=== PATIENT | male | born 1950 | race Caucasian/White ===

== ENCOUNTER 2022-08-05 13:12 | Emergency (ER) | payer OTHER ==
[~2022-08-05] VITALS: Ht 172.7 cm; Wt 72.6 kg
--- NOTE | 2022-08-05 14:16 | NUR ---
Pt taken to CT
--- NOTE | 2022-08-05 14:37 | NUR ---
Pt returned from CT
[2022-08-05 15:14] LABS: ALBUMIN 3.5 g/dL (3.4-5.0); ANION GAP 8.3 (8-16); ASPARTATE AMINOTRANSFERASE 17 U/L (15-37); CHLORIDE 104 mmol/L (98-107); CREATININE 0.9 mg/dL (0.6-1.3); GLUCOSE 88 mg/dL (74-106); LIPASE 135 U/L (73-393); POTASSIUM 4.3 mmol/L (3.5-5.1); SODIUM SERUM 139 mmol/L (136-145); TOTAL BILIRUBIN 0.2 mg/dL (0.0-1.0); UREA NITROGEN, BLOOD 17 mg/dL (7-18)
[2022-08-05 15:18] LABS: BASOPHILS % (AUTO) 0.2 % (0.0-2.0); EOSINOPHILS # (AUTO) 0.1 K/uL (0-0.4); EOSINOPHILS % (AUTO) 0.5 % (0.0-4.0); HEMATOCRIT 39.5 % (36-52); HEMOGLOBIN 12.7 g/dL (12.0-18.0); LYMPHOCYTES # (AUTO) 2.2 K/uL (2.0-11.5); LYMPHOCYTES % (AUTO) 15.5 % (20.5-51.1); MEAN CORPUSCULAR HEMOGLOBIN 28 pg (27-31); MEAN CORPUSCULAR HGB CONC 32 g/dL (33-37); MEAN CORPUSCULAR VOLUME 87.6 fL (80-94); MONOCYTES # (AUTO) 1.1 K/uL (0.8-1.0); NEUTROPHILS # (AUTO) 10.7 K/uL (1.8-7.7); NEUTROPHILS % (AUTO) 75.8 % (42.2-75.2); PLATELET COUNT (AUTO) 169 K/uL (140-450); RED BLOOD CELL COUNT(AUTO) 4.51 MIL/uL (4.20-6.10); RED CELL DISTRIBUTION WIDTH 13.9 % (11.6-13.7); WHITE BLOOD COUNT (AUTO) 14.1 K/uL (4.8-10.8)
--- NOTE | 2022-08-05 18:01 | NUR ---
Performed straight cath at pt's request. 250ml output
--- NOTE | 2022-08-05 20:35 | NUR ---
[facility] HERE.
[2022-08-05 20:45] VITALS: BP 141/80
--- NOTE | 2022-08-05 20:45 | NUR ---
Patient discharged with v/s stable. Written and verbal after care instructions given and explained. Patient verbalized understanding. [facility] with to [facility]. All questions addressed prior to discharge. Advised to follow up with PMD.
== END 2022-08-05 20:45 | disposition home or self-care (01) ==
LOC: MED 13:12
DX: R10.9 Unspecified abdominal pain (principal); K40.90 Unilateral inguinal hernia, without obstruction or gangrene, not specified as recurrent
CPT/HCPCS: 36415; 80053; 83690; 85025; 99284

== ENCOUNTER 2023-04-18 14:35 | Inpatient (IN) | payer OTHER ==
[~2023-04-18] VITALS: Ht 162.6 cm; Wt 72.1 kg
[2023-04-18] MEDS ORDERED: NACL 0.9% 1,000 ML IV SCH (14:50)
[2023-04-18 14:54] VITALS: BP 173/86; PULSE 89; RESP 18; TEMP 98.7; O2SAT 98
[2023-04-18 15:43] LABS: BASOPHILS % (AUTO) 0.2 % (0.0-2.0); EOSINOPHILS # (AUTO) 0.1 K/uL (0-0.4); EOSINOPHILS % (AUTO) 0.9 % (0.0-4.0); HEMATOCRIT 38.1 % (36-52); HEMOGLOBIN 12.4 g/dL (12.0-18.0); LYMPHOCYTES # (AUTO) 1.4 K/uL (2.0-11.5); LYMPHOCYTES % (AUTO) 11.8 % (20.5-51.1); MEAN CORPUSCULAR HEMOGLOBIN 28 pg (27-31); MEAN CORPUSCULAR HGB CONC 32 g/dL (33-37); MEAN CORPUSCULAR VOLUME 85.9 fL (80-94); MONOCYTES # (AUTO) 1.2 K/uL (0.8-1.0); MONOCYTES % (AUTO) 10.1 % (1.7-9.3); PLATELET COUNT (AUTO) 203 K/uL (140-450); RED BLOOD CELL COUNT(AUTO) 4.44 MIL/uL (4.20-6.10); RED CELL DISTRIBUTION WIDTH 13.6 % (11.6-13.7); WHITE BLOOD COUNT (AUTO) 11.7 K/uL (4.8-10.8)
[2023-04-18 15:57] LABS: ANION GAP 10.4 (8-16); CALCIUM 8.8 mg/dL (8.5-10.1); CARBON DIOXIDE 29.9 mmol/L (21-32); CHLORIDE 100 mmol/L (98-107); CREATININE 0.8 mg/dL (0.6-1.3); GLUCOSE 136 mg/dL (74-106); POTASSIUM 4.3 mmol/L (3.5-5.1); SODIUM SERUM 136 mmol/L (136-145); UREA NITROGEN, BLOOD 23 mg/dL (7-18)
[2023-04-18 16:09] LABS: INR 0.9 (0.8-1.2); PARTIAL THROMBOPLASTIN TIME 29.1 secs (22-35.6); PROTHROMBIN TIME 9.5 secs (10.8-13.4)
[2023-04-18 16:10] LABS: LACTIC ACID 1.4 mmol/L (0.4-2.0)
[2023-04-18 16:23] LABS: ALANINE AMINOTRANSFERASE 21 U/L (12-78); ALBUMIN 2.7 g/dL (3.4-5.0); ALKALINE PHOSPHATASE 154 U/L (50-136); ASPARTATE AMINOTRANSFERASE 21 U/L (15-37); BILIRUBIN,DIRECT 0.1 mg/dL (0.0-0.3); CREATINE KINASE, TOTAL 740 U/L (39-308); LIPASE 30 U/L (16-77); TOTAL BILIRUBIN 0.4 mg/dL (0.0-1.0); TOTAL PROTEIN, SERUM 8.1 g/dL (6.4-8.2)
[2023-04-18 18:34] LABS: APPEARANCE,URINE CLEAR (CLEAR); BILIRUBIN,URINE NEGATIVE (NEGATIVE); BLOOD, URINE TRACE-I (NEGATIVE); COLOR,URINE YELLOW (YELLOW); LEUKOCYTE ESTERASE ,URINE NEGATIVE (NEGATIVE); NITRITE, URINE POSITIVE (NEGATIVE); PH,URINE 6.5 (5.0-9.0); PROTEIN,URINE TRACE (NEGATIVE); UGLUCOSE NEGATIVE (NEGATIVE)
[2023-04-18] MEDS ORDERED: PIPERACILLIN/TAZOBACTAM 3.375 GM in DEXTROSE 5% 50 ML IV ONE (18:35)
[2023-04-18 18:36] LABS: RBC,URINE 0-5 /HPF (0-5); WBC,URINE 0 /HPF (0-5)
[2023-04-18 18:37] LABS: BACTERIA,URINE 1+ /HPF (None Seen); MUCUS,URINE None Seen /LPF (None Seen); SQUAMOUS EPITHELIAL CELL,UR 0-3 (FEW) /LPF (0-3 (FEW))
[2023-04-18] MEDS ORDERED: PIPERACILLIN/TAZOBACTAM 3.375 GM VIAL IV ONE (19:10)
[2023-04-18] MEDS ORDERED: DEXT 5% /NACL 0.9% 1,000 ML IV ONE (19:20)
[2023-04-18] MEDS ORDERED: LISI5TAB18 PO (19:41)
[2023-04-18] MEDS ORDERED: CLON0.5T PO (19:41)
[2023-04-18] MEDS ORDERED: ATOR10TA PO (19:41)
[2023-04-18] MEDS ORDERED: METF-346 PO (19:41)
[2023-04-18] MEDS ORDERED: BACL10TA4 PO (19:41)
[2023-04-18] MEDS ORDERED: [UNRECOGNIZED DRUG - CODE] PO (19:41)
[2023-04-18] MEDS ORDERED: VIBE75TA PO (19:41)
[2023-04-18] MEDS ORDERED: FAMO-90 PO (19:41)
[2023-04-19 06:41] LABS: BASOPHILS % (AUTO) 0.1 % (0.0-2.0); EOSINOPHILS # (AUTO) 0.1 K/uL (0-0.4); EOSINOPHILS % (AUTO) 0.9 % (0.0-4.0); HEMATOCRIT 35.9 % (36-52); HEMOGLOBIN 11.5 g/dL (12.0-18.0); LYMPHOCYTES # (AUTO) 1.4 K/uL (2.0-11.5); LYMPHOCYTES % (AUTO) 12.7 % (20.5-51.1); MEAN CORPUSCULAR HEMOGLOBIN 28 pg (27-31); MEAN CORPUSCULAR HGB CONC 32 g/dL (33-37); MEAN CORPUSCULAR VOLUME 85.6 fL (80-94); MONOCYTES # (AUTO) 1.3 K/uL (0.8-1.0); MONOCYTES % (AUTO) 11.4 % (1.7-9.3); NEUTROPHILS # (AUTO) 8.5 K/uL (1.8-7.7); NEUTROPHILS % (AUTO) 74.9 % (42.2-75.2); PLATELET COUNT (AUTO) 189 K/uL (140-450); RED BLOOD CELL COUNT(AUTO) 4.19 MIL/uL (4.20-6.10); RED CELL DISTRIBUTION WIDTH 13.5 % (11.6-13.7); WHITE BLOOD COUNT (AUTO) 11.3 K/uL (4.8-10.8)
[2023-04-19 06:53] LABS: ANION GAP 12.2 (8-16); CALCIUM 8.5 mg/dL (8.5-10.1); CARBON DIOXIDE 27.7 mmol/L (21-32); CHLORIDE 101 mmol/L (98-107); CREATININE 0.8 mg/dL (0.6-1.3); GLUCOSE 166 mg/dL (74-106); POTASSIUM 3.9 mmol/L (3.5-5.1); SODIUM SERUM 137 mmol/L (136-145); UREA NITROGEN, BLOOD 12 mg/dL (7-18)
[2023-04-19 08:05] VITALS: PULSE 111; RESP 17
[2023-04-19] MEDS ORDERED: HYDROcodone/APAP 7.5/325 MG 1 TAB PO PRN (10:00)
[2023-04-19] MEDS ORDERED: MAG SULF 2000 MG/WATER PREMIX 50 ML IV PRN (10:00)
[2023-04-19] MEDS ORDERED: ONDANSETRON 4 MG/2 ML VIAL IVP PRN (10:00)
[2023-04-19] MEDS: NACL 0.9% 1,000 ML IV SCH ×2 (10:00→21:16)
[2023-04-19] MEDS ORDERED: POTASSIUM CHLORIDE 10 MEQ TABER PO PRN (10:00)
[2023-04-19] MEDS ORDERED: ACETAMINOPHEN 325 MG TAB PO PRN (10:00)
[2023-04-19 10:54] LABS: BASOPHILS % (AUTO) 0.3 % (0.0-2.0); EOSINOPHILS # (AUTO) 0.1 K/uL (0-0.4); EOSINOPHILS % (AUTO) 1.3 % (0.0-4.0); HEMATOCRIT 34.3 % (36-52); HEMOGLOBIN 11.3 g/dL (12.0-18.0); LYMPHOCYTES # (AUTO) 1.4 K/uL (2.0-11.5); LYMPHOCYTES % (AUTO) 13.4 % (20.5-51.1); MEAN CORPUSCULAR HEMOGLOBIN 28 pg (27-31); MEAN CORPUSCULAR HGB CONC 33 g/dL (33-37); MEAN CORPUSCULAR VOLUME 84.5 fL (80-94); MONOCYTES # (AUTO) 1.2 K/uL (0.8-1.0); MONOCYTES % (AUTO) 11.1 % (1.7-9.3); NEUTROPHILS # (AUTO) 7.9 K/uL (1.8-7.7); NEUTROPHILS % (AUTO) 73.9 % (42.2-75.2); PLATELET COUNT (AUTO) 195 K/uL (140-450); RED BLOOD CELL COUNT(AUTO) 4.05 MIL/uL (4.20-6.10); RED CELL DISTRIBUTION WIDTH 13.5 % (11.6-13.7); WHITE BLOOD COUNT (AUTO) 10.7 K/uL (4.8-10.8)
[2023-04-19 11:04] LABS: ANION GAP 10.2 (8-16); CALCIUM 8.5 mg/dL (8.5-10.1); CARBON DIOXIDE 30.6 mmol/L (21-32); CHLORIDE 101 mmol/L (98-107); CREATININE 0.9 mg/dL (0.6-1.3); GLUCOSE 156 mg/dL (74-106); POTASSIUM 3.8 mmol/L (3.5-5.1); SODIUM SERUM 138 mmol/L (136-145); UREA NITROGEN, BLOOD 12 mg/dL (7-18)
[2023-04-19 11:14] LABS: INR 0.96 (0.8-1.2); PARTIAL THROMBOPLASTIN TIME 28.8 secs (22-35.6); PROTHROMBIN TIME 10.1 secs (10.8-13.4)
[2023-04-19] MEDS ORDERED: THERAHONEY GEL 42.5 GM TP PRN (11:50)
[2023-04-19 12:00] VITALS: BP 124/76; PULSE 90; RESP 17; TEMP 98.4; O2SAT 97
[2023-04-19] MEDS: BACLOFEN 10 MG TAB PO SCH ×2 (12:00→18:01)
[2023-04-19] MEDS: PIPERACILLIN/TAZOBACTAM 3.375 GM in DEXTROSE 5% 50 ML IV SCH ×2 (12:12→20:53)
[2023-04-19 12:55] LABS: AMYLASE 39 U/L (25-115); CHOL/HDL RATIO 2.5 (1-4.5); CHOLESTEROL 106 mg/dL (<200); FREE T4 (FREE THYROXINE) 1.09 ng/dL (0.76-1.46); HDL CHOLESTEROL 43 mg/dL (40-60); LDL (CALC) 52 mg/dL (60-100); LIPASE 29 U/L (16-77); THYROID STIMULATING HORMONE 0.56 uIU/mL (0.34-3.74); TRIGLYCERIDES 58 mg/dL (30-150)
[2023-04-19] MEDS: THERAHONEY GEL 42.5 GM TP SCH (13:10)
[2023-04-19 16:00] VITALS: BP 143/76; PULSE 84; PULSE 85; RESP 17; TEMP 98.5; O2SAT 98
[2023-04-19] MEDS ORDERED: INSULIN LISPRO SLIDING SCALE 100 UNITS/ML VIAL SUBQ PRN ×2 (17:10)
[2023-04-19] MEDS ORDERED: DEXTROSE 50% 50 ML SYR IVP PRN ×2 (17:10)
[2023-04-19] MEDS: metFORMIN 500 MG TAB PO SCH (18:02)
[2023-04-19 20:00] VITALS: BP 146/85; PULSE 113; PULSE 93; RESP 17; TEMP 98.4; O2SAT 96
[2023-04-19] MEDS: DOCUSATE SODIUM 100 MG GELCAP PO SCH (20:53)
[2023-04-19] MEDS: ATORVASTATIN 20 MG TAB PO SCH (20:54)
[2023-04-19] MEDS: methocarbamoL 500 MG TAB PO SCH (20:54)
[2023-04-19] MEDS: BLOOD GLUCOSE MONITORING 1 DEV DEV FS SCH (21:09)
[2023-04-20] VITALS: BP 142/87; PULSE 93; PULSE 96; RESP 17; TEMP 98.8; O2SAT 98
[2023-04-20] MEDS: BACLOFEN 10 MG TAB PO SCH ×5 (00:01→23:54)
[2023-04-20 04:00] VITALS: BP 147/80; PULSE 82; PULSE 93; RESP 17; TEMP 98.6; O2SAT 97
[2023-04-20] MEDS: PIPERACILLIN/TAZOBACTAM 3.375 GM in DEXTROSE 5% 50 ML IV SCH ×3 (04:53→22:15)
[2023-04-20 06:22] LABS: BASOPHILS % (AUTO) 0.3 % (0.0-2.0); EOSINOPHILS # (AUTO) 0.1 K/uL (0-0.4); EOSINOPHILS % (AUTO) 1.1 % (0.0-4.0); HEMATOCRIT 33.4 % (36-52); LYMPHOCYTES # (AUTO) 1.7 K/uL (2.0-11.5); LYMPHOCYTES % (AUTO) 15.4 % (20.5-51.1); MEAN CORPUSCULAR HEMOGLOBIN 28 pg (27-31); MEAN CORPUSCULAR HGB CONC 33 g/dL (33-37); MEAN CORPUSCULAR VOLUME 84.9 fL (80-94); MONOCYTES % (AUTO) 9.3 % (1.7-9.3); NEUTROPHILS # (AUTO) 8.1 K/uL (1.8-7.7); NEUTROPHILS % (AUTO) 73.9 % (42.2-75.2); PLATELET COUNT (AUTO) 193 K/uL (140-450); RED BLOOD CELL COUNT(AUTO) 3.93 MIL/uL (4.20-6.10); RED CELL DISTRIBUTION WIDTH 13.5 % (11.6-13.7); WHITE BLOOD COUNT (AUTO) 10.9 K/uL (4.8-10.8)
[2023-04-20] MEDS: BLOOD GLUCOSE MONITORING 1 DEV DEV FS SCH ×4 (07:30→22:13)
[2023-04-20 07:33] LABS: MAGNESIUM 1.8 mg/dL (1.8-2.4); PHOSPHORUS 3.4 mg/dL (2.5-4.9)
[2023-04-20 08:00] VITALS: BP 123/75; PULSE 89; RESP 20; TEMP 96.6; O2SAT 97
[2023-04-20 08:30] LABS: ANION GAP 14.2 (8-16); CALCIUM 8.2 mg/dL (8.5-10.1); CARBON DIOXIDE 24.5 mmol/L (21-32); CHLORIDE 101 mmol/L (98-107); CREATININE 0.7 mg/dL (0.6-1.3); GLUCOSE 126 mg/dL (74-106); POTASSIUM 3.7 mmol/L (3.5-5.1); SODIUM SERUM 136 mmol/L (136-145); UREA NITROGEN, BLOOD 13 mg/dL (7-18)
[2023-04-20] MEDS ORDERED: VIBEGRON 75 MG PO SCH (09:00)
[2023-04-20] MEDS: PANTOPRAZOLE 40 MG INJ VIAL IVP SCH (09:30)
[2023-04-20] MEDS: metFORMIN 500 MG TAB PO SCH ×2 (09:31→17:20)
[2023-04-20] MEDS: lisinopriL 5 MG TAB PO SCH (09:31)
[2023-04-20] MEDS: FAMOTIDINE 20 MG TAB PO SCH (09:31)
[2023-04-20] MEDS: DOCUSATE SODIUM 100 MG GELCAP PO SCH ×2 (09:31→21:51)
[2023-04-20] MEDS: clonazePAM 0.5 MG TAB PO SCH (09:34)
[2023-04-20 12:00] VITALS: BP 126/78; PULSE 75; RESP 20; TEMP 98; O2SAT 97
[2023-04-20] MEDS: THERAHONEY GEL 42.5 GM TP SCH (13:00)
[2023-04-20] MEDS: NACL 0.9% 1,000 ML IV SCH (15:59)
[2023-04-20 16:00] VITALS: BP 135/81; PULSE 112; RESP 20; TEMP 98.4; O2SAT 98
[2023-04-20 20:00] VITALS: BP 145/82; PULSE 82; PULSE 92; RESP 20; TEMP 98; O2SAT 96; O2SAT 97
[2023-04-20] MEDS: methocarbamoL 500 MG TAB PO SCH (21:52)
[2023-04-20] MEDS: ATORVASTATIN 20 MG TAB PO SCH (21:52)
[2023-04-20] MEDS ORDERED: CRUSHER, PILL MC ONE (22:06)
[2023-04-21] VITALS (8 sets, daily range): BP systolic 133–158; BP diastolic 72–92; PULSE 76–118; RESP 18–20; TEMP 97.3–98.5; O2SAT 96–98
[2023-04-21 05:51] LABS: ANION GAP 11.7 (8-16); CARBON DIOXIDE 26.6 mmol/L (21-32); CHLORIDE 101 mmol/L (98-107); CREATININE 0.8 mg/dL (0.6-1.3); GLUCOSE 129 mg/dL (74-106); POTASSIUM 3.3 mmol/L (3.5-5.1); SODIUM SERUM 136 mmol/L (136-145); UREA NITROGEN, BLOOD 10 mg/dL (7-18)
[2023-04-21 05:59] LABS: PHOSPHORUS 3.4 mg/dL (2.5-4.9)
[2023-04-21] MEDS: BACLOFEN 10 MG TAB PO SCH ×3 (06:00→17:29)
[2023-04-21] MEDS: PIPERACILLIN/TAZOBACTAM 3.375 GM in DEXTROSE 5% 50 ML IV SCH ×3 (06:06→23:00)
[2023-04-21] MEDS: NACL 0.9% 1,000 ML IV SCH (06:07)
[2023-04-21] MEDS: BLOOD GLUCOSE MONITORING 1 DEV DEV FS SCH ×4 (06:13→23:00)
[2023-04-21] MEDS ORDERED: METOCLOPRAMIDE 10 MG/2 ML INJ VIAL IVP ONE (07:10)
[2023-04-21] MEDS ORDERED: SEVOFLURANE 250 ML BTL INH ONE (07:10)
[2023-04-21] MEDS ORDERED: ePHEDrine 50 MG/ML VIAL IV ONE (07:10)
[2023-04-21 07:49] LABS: BASOPHILS % (AUTO) 0.3 % (0.0-2.0); EOSINOPHILS # (AUTO) 0.2 K/uL (0-0.4); EOSINOPHILS % (AUTO) 1.7 % (0.0-4.0); HEMATOCRIT 35.3 % (36-52); HEMOGLOBIN 11.3 g/dL (12.0-18.0); LYMPHOCYTES # (AUTO) 2.1 K/uL (2.0-11.5); MEAN CORPUSCULAR HEMOGLOBIN 28 pg (27-31); MEAN CORPUSCULAR HGB CONC 32 g/dL (33-37); MEAN CORPUSCULAR VOLUME 86.5 fL (80-94); MONOCYTES # (AUTO) 1.1 K/uL (0.8-1.0); MONOCYTES % (AUTO) 9.5 % (1.7-9.3); NEUTROPHILS # (AUTO) 8.3 K/uL (1.8-7.7); NEUTROPHILS % (AUTO) 70.5 % (42.2-75.2); PLATELET COUNT (AUTO) 227 K/uL (140-450); RED BLOOD CELL COUNT(AUTO) 4.08 MIL/uL (4.20-6.10); RED CELL DISTRIBUTION WIDTH 13.5 % (11.6-13.7); WHITE BLOOD COUNT (AUTO) 11.8 K/uL (4.8-10.8)
[2023-04-21] MEDS: metFORMIN 500 MG TAB PO SCH ×2 (08:00→17:29)
[2023-04-21] MEDS: FAMOTIDINE 20 MG TAB PO SCH (09:00)
[2023-04-21] MEDS: PANTOPRAZOLE 40 MG INJ VIAL IVP SCH (09:00)
[2023-04-21] MEDS: DOCUSATE SODIUM 100 MG GELCAP PO SCH ×2 (09:00→21:00)
[2023-04-21] MEDS: clonazePAM 0.5 MG TAB PO SCH (09:00)
[2023-04-21] MEDS: lisinopriL 5 MG TAB PO SCH (09:00)
[2023-04-21] MEDS ORDERED: LIDOCAINE/EPI MPF 1%1:200000 30 ML VIAL INJ ONE (09:08)
[2023-04-21] MEDS ORDERED: BUPIVACAINE-MPF 0.25% 30 ML VIAL INJ ONE (09:09)
[2023-04-21] MEDS ORDERED: ceFAZolin 2,000 MG VIAL ONE (09:09)
[2023-04-21] MEDS ORDERED: MIDAZOLAM 2 MG/2 ML VIAL ONE (09:18)
[2023-04-21] MEDS ORDERED: PROPOFOL 200 MG/20 ML VIAL IV ONE (09:18)
[2023-04-21] MEDS ORDERED: ROCURONIUM 50 MG/5 ML VIAL IV ONE (09:18)
[2023-04-21] MEDS ORDERED: HYDROmorphone PFS 2 MG/ML SYR ONE (09:18)
[2023-04-21] MEDS ORDERED: SUGAMMADEX SODIUM 200 MG/2 ML VIAL IV ONE (09:32)
[2023-04-21] MEDS: LACTATED RINGERS 1,000 ML IV SCH ×2 (10:40→18:35)
[2023-04-21] MEDS ORDERED: ONDANSETRON 4 MG/2 ML VIAL IVP PRN (10:40)
[2023-04-21] MEDS ORDERED: HYDROmorphone 1 MG/ML AMP IVP PRN (10:40)
[2023-04-21] MEDS: THERAHONEY GEL 42.5 GM TP SCH (18:15)
[2023-04-21] MEDS: methocarbamoL 500 MG TAB PO SCH (23:00)
[2023-04-21] MEDS: ATORVASTATIN 20 MG TAB PO SCH (23:01)
[2023-04-22] VITALS (7 sets, daily range): BP systolic 128–152; BP diastolic 66–85; PULSE 78–110; RESP 18; TEMP 98.1–98.8; O2SAT 94–98
[2023-04-22] MEDS: LACTATED RINGERS 1,000 ML IV SCH (03:20)
[2023-04-22] MEDS: NACL 0.9% 1,000 ML IV SCH (06:15)
[2023-04-22] MEDS: BACLOFEN 10 MG TAB PO SCH ×4 (06:16→17:35)
[2023-04-22] MEDS: PIPERACILLIN/TAZOBACTAM 3.375 GM in DEXTROSE 5% 50 ML IV SCH ×3 (06:16→21:40)
[2023-04-22 06:28] LABS: BASOPHILS % (AUTO) 0.2 % (0.0-2.0); EOSINOPHILS # (AUTO) 0.1 K/uL (0-0.4); EOSINOPHILS % (AUTO) 0.6 % (0.0-4.0); HEMATOCRIT 32.9 % (36-52); HEMOGLOBIN 10.9 g/dL (12.0-18.0); LYMPHOCYTES # (AUTO) 1.6 K/uL (2.0-11.5); LYMPHOCYTES % (AUTO) 14.4 % (20.5-51.1); MEAN CORPUSCULAR HEMOGLOBIN 28 pg (27-31); MEAN CORPUSCULAR HGB CONC 33 g/dL (33-37); MEAN CORPUSCULAR VOLUME 84.4 fL (80-94); MONOCYTES # (AUTO) 1.2 K/uL (0.8-1.0); MONOCYTES % (AUTO) 10.9 % (1.7-9.3); NEUTROPHILS # (AUTO) 8.1 K/uL (1.8-7.7); NEUTROPHILS % (AUTO) 73.9 % (42.2-75.2); PLATELET COUNT (AUTO) 245 K/uL (140-450); RED CELL DISTRIBUTION WIDTH 13.6 % (11.6-13.7)
[2023-04-22 06:36] LABS: ANION GAP 12.7 (8-16); CALCIUM 7.6 mg/dL (8.5-10.1); CHLORIDE 99 mmol/L (98-107); CREATININE 0.8 mg/dL (0.6-1.3); GLUCOSE 142 mg/dL (74-106); POTASSIUM 3.7 mmol/L (3.5-5.1); SODIUM SERUM 133 mmol/L (136-145); UREA NITROGEN, BLOOD 9 mg/dL (7-18)
[2023-04-22] MEDS: BLOOD GLUCOSE MONITORING 1 DEV DEV FS SCH ×4 (06:47→21:57)
[2023-04-22 06:48] LABS: MAGNESIUM 1.8 mg/dL (1.8-2.4); PHOSPHORUS 3.6 mg/dL (2.5-4.9)
[2023-04-22] MEDS: DOCUSATE SODIUM 100 MG GELCAP PO SCH ×2 (08:26→21:38)
[2023-04-22] MEDS: FAMOTIDINE 20 MG TAB PO SCH (08:26)
[2023-04-22] MEDS: lisinopriL 5 MG TAB PO SCH (08:27)
[2023-04-22] MEDS: metFORMIN 500 MG TAB PO SCH ×2 (08:32→17:36)
[2023-04-22] MEDS: clonazePAM 0.5 MG TAB PO SCH (09:08)
[2023-04-22] MEDS: PANTOPRAZOLE 40 MG INJ VIAL IVP SCH (10:18)
[2023-04-22] MEDS: THERAHONEY GEL 42.5 GM TP SCH (13:00)
[2023-04-22] MEDS ORDERED: Vancomycin Per Pharmacy MC (18:49)
[2023-04-22] MEDS: methocarbamoL 500 MG TAB PO SCH (21:38)
[2023-04-22] MEDS: ATORVASTATIN 20 MG TAB PO SCH (21:39)
[2023-04-22] MEDS ORDERED: VANCOMYCIN 1,000 MG VIAL ONE (21:59)
[2023-04-22] MEDS: VANCOMYCIN 1,000 MG in DEXTROSE 5% 250 ML IV SCH (22:24)
[2023-04-23] VITALS (7 sets, daily range): BP systolic 124–154; BP diastolic 75–80; PULSE 83–100; RESP 18; TEMP 97.8–98.9; O2SAT 96–99
[2023-04-23] MEDS: BACLOFEN 10 MG TAB PO SCH ×4 (00:05→17:10)
[2023-04-23] MEDS: NACL 0.9% 1,000 ML IV SCH (03:59)
[2023-04-23] MEDS: PIPERACILLIN/TAZOBACTAM 3.375 GM in DEXTROSE 5% 50 ML IV SCH ×2 (05:51→05:54)
[2023-04-23 06:14] LABS: ANION GAP 8.7 (8-16); CALCIUM 8.3 mg/dL (8.5-10.1); CARBON DIOXIDE 28.5 mmol/L (21-32); CHLORIDE 100 mmol/L (98-107); CREATININE 0.8 mg/dL (0.6-1.3); GLUCOSE 162 mg/dL (74-106); POTASSIUM 3.2 mmol/L (3.5-5.1); SODIUM SERUM 134 mmol/L (136-145); UREA NITROGEN, BLOOD 6 mg/dL (7-18)
[2023-04-23 06:18] LABS: PHOSPHORUS 2.5 mg/dL (2.5-4.9)
[2023-04-23] MEDS: BLOOD GLUCOSE MONITORING 1 DEV DEV FS SCH ×3 (06:35→16:48)
[2023-04-23 06:46] LABS: BASOPHILS % (AUTO) 0.2 % (0.0-2.0); EOSINOPHILS # (AUTO) 0.1 K/uL (0-0.4); HEMOGLOBIN 9.9 g/dL (12.0-18.0); LYMPHOCYTES # (AUTO) 1.6 K/uL (2.0-11.5); LYMPHOCYTES % (AUTO) 12.9 % (20.5-51.1); MEAN CORPUSCULAR HEMOGLOBIN 28 pg (27-31); MEAN CORPUSCULAR HGB CONC 33 g/dL (33-37); MONOCYTES # (AUTO) 1.2 K/uL (0.8-1.0); NEUTROPHILS # (AUTO) 9.1 K/uL (1.8-7.7); NEUTROPHILS % (AUTO) 75.9 % (42.2-75.2); PLATELET COUNT (AUTO) 230 K/uL (140-450); RED BLOOD CELL COUNT(AUTO) 3.53 MIL/uL (4.20-6.10); RED CELL DISTRIBUTION WIDTH 13.4 % (11.6-13.7)
[2023-04-23] MEDS ORDERED: VANCOMYCIN PER PHARMACY MC PRN (08:06)
[2023-04-23] MEDS: lisinopriL 5 MG TAB PO SCH (08:59)
[2023-04-23] MEDS: metFORMIN 500 MG TAB PO SCH ×2 (09:00→17:10)
[2023-04-23] MEDS: DOCUSATE SODIUM 100 MG GELCAP PO SCH (09:00)
[2023-04-23] MEDS: FAMOTIDINE 20 MG TAB PO SCH (09:00)
[2023-04-23] MEDS: clonazePAM 0.5 MG TAB PO SCH (09:03)
[2023-04-23] MEDS: VANCOMYCIN 1,000 MG in DEXTROSE 5% 250 ML IV SCH (09:25)
[2023-04-23] MEDS: PANTOPRAZOLE 40 MG INJ VIAL IVP SCH (09:25)
[2023-04-23] MEDS ORDERED: SIMETHICONE 80 MG TAB.CHEW PO PRN (09:30)
[2023-04-23] MEDS: THERAHONEY GEL 42.5 GM TP SCH (13:18)
== END 2023-04-23 18:11 | DRG 853 ==
LOC: MED 14:35 → MTU 19:25
PROC: 0YU60JZ Supplement Left Inguinal Region with Synthetic Substitute, Open Approach (ICD-10-PCS; principal; 2023-04-21 09:00)
DX: A41.9 Sepsis, unspecified organism (principal); G06.1 Intraspinal abscess and granuloma; L89.154 Pressure ulcer of sacral region, stage 4; G82.20 Paraplegia, unspecified; N39.0 Urinary tract infection, site not specified; E87.1 Hypo-osmolality and hyponatremia; K57.92 Diverticulitis of intestine, part unspecified, without perforation or abscess without bleeding; K40.90 Unilateral inguinal hernia, without obstruction or gangrene, not specified as recurrent; K74.60 Unspecified cirrhosis of liver; K21.9 Gastro-esophageal reflux disease without esophagitis; I10 Essential (primary) hypertension; E78.5 Hyperlipidemia, unspecified; K44.9 Diaphragmatic hernia without obstruction or gangrene; I70.208 Unspecified atherosclerosis of native arteries of extremities, other extremity; N31.2 Flaccid neuropathic bladder, not elsewhere classified; D64.9 Anemia, unspecified; I70.202 Unspecified atherosclerosis of native arteries of extremities, left leg
CPT/HCPCS: 36415; 71045; 74018; 80048; 80076; 81001; 82140; 82150; 82550; 82553; 82948; 83036; 83605; 83690; 83735; 83880; 84100; 84439; 84443; 84484; 85025; 85610; 85730; 86886; 86900; 86901; 87040; 87070; 87075; 87081; 87086; 87186; 87205; 88302; 92526; 93005; 96361; 96365; 99285; C9113; J0696; J1170; J1815; J2001; J2250; J2543; J2704; J2765; J3370; J3490; J7060; J7120; Q0092; Q9967

== ENCOUNTER 2023-09-16 15:14 | Inpatient (IN) | payer OTHER ==
[~2023-09-16] VITALS: Ht 175.3 cm; Wt 73.5 kg
[~2023-09-16 15:14] MED LIST: ATOR10TA PO; BACL10TA4 PO; CLON-1201 PO; FAMO-90 PO; LISI5TAB18 PO; MEROPENEM IV; METF-346 PO; MIRT-120 PO; VIBE75TA PO; [UNRECOGNIZED DRUG - CODE] PO
[2023-09-16 15:20] VITALS: PULSE 116; RESP 24; O2SAT 94
[2023-09-16 15:25] VITALS: O2SAT 97
[2023-09-16 15:30] VITALS: BP 128/72; PULSE 103; RESP 20; TEMP 98.3; O2SAT 95
[2023-09-16 15:35] VITALS: O2SAT 100
[2023-09-16] MEDS ORDERED: PIPERACILLIN/TAZOBACTAM 3.375 GM VIAL IV ONE (16:26)
[2023-09-16 16:31] LABS: BASOPHILS % (AUTO) 0.5 % (0.0-2.0); EOSINOPHILS # (AUTO) 0.3 K/uL (0-0.4); EOSINOPHILS % (AUTO) 4.1 % (0.0-4.0); HEMATOCRIT 28.7 % (36-52); HEMOGLOBIN 9.2 g/dL (12.0-18.0); LYMPHOCYTES # (AUTO) 1.5 K/uL (2.0-11.5); LYMPHOCYTES % (AUTO) 19.1 % (20.5-51.1); MEAN CORPUSCULAR HEMOGLOBIN 26 pg (27-31); MEAN CORPUSCULAR HGB CONC 32 g/dL (33-37); MEAN CORPUSCULAR VOLUME 81.2 fL (80-94); MONOCYTES # (AUTO) 0.6 K/uL (0.8-1.0); MONOCYTES % (AUTO) 7.2 % (1.7-9.3); NEUTROPHILS # (AUTO) 5.5 K/uL (1.8-7.7); NEUTROPHILS % (AUTO) 69.1 % (42.2-75.2); PLATELET COUNT (AUTO) 175 K/uL (140-450); RED BLOOD CELL COUNT(AUTO) 3.53 MIL/uL (4.20-6.10)
[2023-09-16 16:40] LABS: APPEARANCE,URINE CLEAR (CLEAR); BILIRUBIN,URINE NEGATIVE (NEGATIVE); BLOOD, URINE 1+ (NEGATIVE); COLOR,URINE YELLOW (YELLOW); LEUKOCYTE ESTERASE ,URINE 2+ (NEGATIVE); NITRITE, URINE NEGATIVE (NEGATIVE); PROTEIN,URINE 2+ (NEGATIVE); UGLUCOSE NEGATIVE (NEGATIVE); UROBILINOGEN,URINE 0.2 EU/dL (0.2 - 1)
[2023-09-16 16:42] LABS: ANION GAP 13.4 (8-16); CALCIUM 8.5 mg/dL (8.5-10.1); CARBON DIOXIDE 26.9 mmol/L (21-32); CHLORIDE 112 mmol/L (98-107); GLUCOSE 203 mg/dL (74-106); POTASSIUM 3.3 mmol/L (3.5-5.1); SODIUM SERUM 149 mmol/L (136-145); UREA NITROGEN, BLOOD 25 mg/dL (7-18)
[2023-09-16 16:45] LABS: INR 0.98 (0.8-1.2); PARTIAL THROMBOPLASTIN TIME 29.1 secs (22-35.6); PROTHROMBIN TIME 10.3 secs (10.8-13.4)
[2023-09-16] MEDS: NACL 0.9% 1,000 ML IV SCH ×2 (16:45→19:01)
[2023-09-16] MEDS: PIPERACILLIN/TAZOBACTAM 3.375 GM in DEXT 5% MINI-BAG PLUS 50 ML IV ONE (16:46)
[2023-09-16 16:52] LABS: LACTIC ACID 1.6 mmol/L (0.4-2.0)
[2023-09-16 16:58] LABS: BACTERIA,URINE >30 (MANY) /HPF (None Seen); RBC,URINE TOO NUMEROUS TO COUN /HPF (0-5); SQUAMOUS EPITHELIAL CELL,UR 0-3 (FEW) /LPF (0-3 (FEW)); WBC,URINE TOO MANY TO COUNT /HPF (0-5)
[2023-09-16 16:59] LABS: MUCUS,URINE None Seen /LPF (None Seen); TRICHOMONAS,URINE None Seen /HPF (None Seen); WHITE BLOOD CELL CASTS,URINE None Seen /LPF (None Seen); YEAST,URINE None Seen /HPF (None Seen)
[2023-09-16 17:08] LABS: ALANINE AMINOTRANSFERASE 14 U/L (12-78); ALBUMIN 1.6 g/dL (3.4-5.0); ALKALINE PHOSPHATASE 129 U/L (50-136); ASPARTATE AMINOTRANSFERASE 17 U/L (15-37); BILIRUBIN,DIRECT 0.1 mg/dL (0.0-0.3); TOTAL BILIRUBIN 0.2 mg/dL (0.0-1.0)
[2023-09-16] MEDS ORDERED: ONDANSETRON 4 MG/2 ML VIAL IVP PRN (18:40)
[2023-09-16] MEDS ORDERED: HYDROcodone/APAP 7.5/325 MG 1 TAB PO PRN (18:40)
[2023-09-16] MEDS ORDERED: VITC500 PO (20:19)
[2023-09-16 20:39] LABS: INR 0.98 (0.8-1.2); PARTIAL THROMBOPLASTIN TIME 29.7 secs (22-35.6); PROTHROMBIN TIME 10.3 secs (10.8-13.4)
[2023-09-16 20:58] VITALS: BP 148/86; PULSE 97; RESP 18; TEMP 96.7; O2SAT 100
[2023-09-16 21:00] LABS: FREE T4 (FREE THYROXINE) 1.13 ng/dL (0.76-1.46); MAGNESIUM 1.7 mg/dL (1.8-2.4); PHOSPHORUS 3.7 mg/dL (2.5-4.9); THYROID STIMULATING HORMONE 2.42 uIU/mL (0.34-3.74)
[2023-09-16] MEDS: DOCUSATE SODIUM 100 MG GELCAP PO SCH (21:00)
[2023-09-16 21:12] VITALS: PULSE 99
[2023-09-17] VITALS (8 sets, daily range): BP systolic 136–149; BP diastolic 77–87; PULSE 83–103; RESP 18–20; TEMP 96.6–98.8; O2SAT 98–100
[2023-09-17] MEDS: PIPERACILLIN/TAZOBACTAM 3.375 GM VIAL IV ONE (01:17)
[2023-09-17] MEDS: PIPER/TAZO 3.375GM/D5W PREMIX 50 ML IV ONE (01:24)
[2023-09-17 04:53] LABS: BASOPHILS % (AUTO) 0.5 % (0.0-2.0); EOSINOPHILS # (AUTO) 0.3 K/uL (0-0.4); EOSINOPHILS % (AUTO) 3.6 % (0.0-4.0); LYMPHOCYTES # (AUTO) 1.3 K/uL (2.0-11.5); MEAN CORPUSCULAR HEMOGLOBIN 26 pg (27-31); MEAN CORPUSCULAR HGB CONC 32 g/dL (33-37); MEAN CORPUSCULAR VOLUME 81.2 fL (80-94); MONOCYTES # (AUTO) 0.6 K/uL (0.8-1.0); MONOCYTES % (AUTO) 8.6 % (1.7-9.3); NEUTROPHILS # (AUTO) 5.1 K/uL (1.8-7.7); NEUTROPHILS % (AUTO) 69.3 % (42.2-75.2); PLATELET COUNT (AUTO) 147 K/uL (140-450); RED BLOOD CELL COUNT(AUTO) 3.08 MIL/uL (4.20-6.10); WHITE BLOOD COUNT (AUTO) 7.4 K/uL (4.8-10.8)
[2023-09-17 05:17] LABS: CALCIUM 8.3 mg/dL (8.5-10.1); CARBON DIOXIDE 28.3 mmol/L (21-32); CHLORIDE 117 mmol/L (98-107); CREATININE 1.9 mg/dL (0.6-1.3); GLUCOSE 142 mg/dL (74-106); POTASSIUM 3.3 mmol/L (3.5-5.1); SODIUM SERUM 153 mmol/L (136-145); UREA NITROGEN, BLOOD 25 mg/dL (7-18)
[2023-09-17 06:02] LABS: MAGNESIUM 1.7 mg/dL (1.8-2.4)
[2023-09-17] MEDS: PANTOPRAZOLE 40 MG INJ VIAL IVP SCH (09:28)
[2023-09-17] MEDS: MIDAZOLAM 2 MG/2 ML VIAL IVP ONE (10:38)
[2023-09-17] MEDS: fentaNYL citrate 0.05 MG/ML VIAL IVP ONE (10:39)
[2023-09-17] MEDS: diphenhydrAMINE 50 MG/ML VIAL ONE (11:14)
[2023-09-17] MEDS: fentaNYL citrate 0.05 MG/ML VIAL ONE (11:14)
[2023-09-17] MEDS: MIDAZOLAM 2 MG/2 ML VIAL ONE ×2 (11:14→11:15)
[2023-09-17] MEDS: PIPERACILLIN/TAZOBACTAM 3.375 GM in DEXTROSE 5% 50 ML IV SCH (14:19)
[2023-09-17] MEDS: KCL 20 MEQ IN 100 mL PREMIX 100 ML IV ONE (16:38)
[2023-09-17 19:06] LABS: AMPHETAMINE, URINE NEGATIVE ng/ml (NEG <=1000); BARBITURATE, URINE NEGATIVE ng/ml (NEG <=200); BENZODIAZEPINE, URINE NEGATIVE ng/mL (NEG <=200); CANNABINOID, URINE NEGATIVE ng/mL (NEG <=50); COCAINE, URINE NEGATIVE ng/mL (NEG <=300); OPIATE, URINE NEGATIVE ng/mL (NEG <=2000); PHENCYCLIDINE SCREEN,URINE NEGATIVE ng/mL (NEG <=25)
[2023-09-17] MEDS ORDERED: DEXTROSE 50% 50 ML SYR IVP PRN (23:20)
[2023-09-18] VITALS: BP 146/89; PULSE 92; PULSE 95; RESP 20; TEMP 97; O2SAT 100
[2023-09-18] MEDS: BACLOFEN 10 MG TAB PO SCH (01:28)
[2023-09-18] MEDS: MAG SULF 2000 MG/WATER PREMIX 50 ML IV ONE (01:30)
[2023-09-18 04:00] VITALS: BP 131/83; PULSE 89; PULSE 95; RESP 18; TEMP 96.7; O2SAT 100
[2023-09-18] MEDS: BLOOD GLUCOSE MONITORING 1 DEV DEV FS SCH (06:39)
[2023-09-18 08:00] VITALS: BP 125/78; PULSE 103; PULSE 94; PULSE 98; RESP 18; RESP 20; TEMP 96.9; TEMP 97.6; O2SAT 100
[2023-09-18] MEDS ORDERED: VIBEGRON 75 MG PO SCH (09:00)
[2023-09-18 09:14] LABS: BASOPHILS # (AUTO) 0.1 K/uL (0.00-0.22); BASOPHILS % (AUTO) 0.9 % (0.0-2.0); EOSINOPHILS # (AUTO) 0.4 K/uL (0-0.4); HEMATOCRIT 23.4 % (36-52); HEMOGLOBIN 7.5 g/dL (12.0-18.0); LYMPHOCYTES # (AUTO) 1.4 K/uL (2.0-11.5); MEAN CORPUSCULAR HEMOGLOBIN 26 pg (27-31); MEAN CORPUSCULAR HGB CONC 32 g/dL (33-37); MEAN CORPUSCULAR VOLUME 81.7 fL (80-94); MONOCYTES # (AUTO) 0.5 K/uL (0.8-1.0); MONOCYTES % (AUTO) 7.7 % (1.7-9.3); NEUTROPHILS % (AUTO) 63.4 % (42.2-75.2); PLATELET COUNT (AUTO) 148 K/uL (140-450); RED BLOOD CELL COUNT(AUTO) 2.87 MIL/uL (4.20-6.10); RED CELL DISTRIBUTION WIDTH 19.8 % (11.6-13.7); WHITE BLOOD COUNT (AUTO) 6.3 K/uL (4.8-10.8)
[2023-09-18 09:22] LABS: ANION GAP 10.1 (8-16); CALCIUM 8.3 mg/dL (8.5-10.1); CARBON DIOXIDE 27.3 mmol/L (21-32); CHLORIDE 121 mmol/L (98-107); CREATININE 1.8 mg/dL (0.6-1.3); GLUCOSE 122 mg/dL (74-106); POTASSIUM 3.4 mmol/L (3.5-5.1); SODIUM SERUM 155 mmol/L (136-145); UREA NITROGEN, BLOOD 21 mg/dL (7-18)
[2023-09-18 09:32] LABS: MAGNESIUM 2.5 mg/dL (1.8-2.4); PHOSPHORUS 4.1 mg/dL (2.5-4.9)
[2023-09-18] MEDS: lisinopriL 5 MG TAB PO SCH (10:13)
[2023-09-18] MEDS: FAMOTIDINE 20 MG TAB PO SCH (10:14)
[2023-09-18] MEDS: clonazePAM 0.5 MG TAB PO SCH (10:15)
[2023-09-18] MEDS: metFORMIN 500 MG TAB PO SCH (10:15)
[2023-09-18] MEDS: POTASSIUM CHLORIDE 10 MEQ TABER PO PRN (10:16)
[2023-09-18] MEDS: ASCORBIC ACID 500 MG TAB PO SCH (10:16)
[2023-09-18 12:00] VITALS: BP 127/78; PULSE 89; PULSE 94; RESP 18; TEMP 97; O2SAT 100
[2023-09-18] MEDS: DEXTROSE 5% 1,000 ML IV SCH (13:59)
[2023-09-18 16:00] VITALS: BP 133/76; PULSE 86; PULSE 89; RESP 18; TEMP 97; O2SAT 100
[2023-09-18] MEDS: FOAM DRESSING TP SCH (16:13)
[2023-09-18] MEDS: THERAHONEY GEL 42.5 GM TP SCH (16:13)
[2023-09-18 20:00] VITALS: BP 131/76; PULSE 81; PULSE 87; RESP 18; RESP 20; TEMP 96.9; O2SAT 97
[2023-09-18] MEDS ORDERED: METHOCARBAMOL PO SCH (21:00)
[2023-09-18] MEDS: ATORVASTATIN 20 MG TAB PO SCH (22:09)
[2023-09-18] MEDS: MIRTAZAPINE 15 MG TAB PO SCH (22:09)
[2023-09-18] MEDS: methocarbamoL 500 MG TAB PO SCH (22:10)
[2023-09-19] VITALS (10 sets, daily range): BP systolic 108–127; BP diastolic 73–81; PULSE 76–96; RESP 18; TEMP 96.7–98.9; O2SAT 96–100
[2023-09-19] MEDS: HYDRAGUARD CREAM TP SCH (00:29)
[2023-09-19 07:00] LABS: BASOPHILS % (AUTO) 0.5 % (0.0-2.0); EOSINOPHILS # (AUTO) 0.4 K/uL (0-0.4); EOSINOPHILS % (AUTO) 6.2 % (0.0-4.0); HEMATOCRIT 26.4 % (36-52); HEMOGLOBIN 8.4 g/dL (12.0-18.0); LYMPHOCYTES # (AUTO) 1.6 K/uL (2.0-11.5); MEAN CORPUSCULAR HEMOGLOBIN 26 pg (27-31); MEAN CORPUSCULAR HGB CONC 32 g/dL (33-37); MEAN CORPUSCULAR VOLUME 81.9 fL (80-94); MONOCYTES # (AUTO) 0.6 K/uL (0.8-1.0); MONOCYTES % (AUTO) 9.2 % (1.7-9.3); NEUTROPHILS # (AUTO) 3.9 K/uL (1.8-7.7); NEUTROPHILS % (AUTO) 60.1 % (42.2-75.2); PLATELET COUNT (AUTO) 157 K/uL (140-450); RED BLOOD CELL COUNT(AUTO) 3.23 MIL/uL (4.20-6.10); RED CELL DISTRIBUTION WIDTH 19.5 % (11.6-13.7); WHITE BLOOD COUNT (AUTO) 6.5 K/uL (4.8-10.8)
[2023-09-19 08:26] LABS: ANION GAP 11.9 (8-16); CALCIUM 8.5 mg/dL (8.5-10.1); CARBON DIOXIDE 27.8 mmol/L (21-32); CHLORIDE 120 mmol/L (98-107); GLUCOSE 136 mg/dL (74-106); POTASSIUM 3.7 mmol/L (3.5-5.1); UREA NITROGEN, BLOOD 21 mg/dL (7-18)
[2023-09-19 08:27] LABS: CREATININE 1.7 mg/dL (0.6-1.3); MAGNESIUM 2.3 mg/dL (1.8-2.4); PHOSPHORUS 3.5 mg/dL (2.5-4.9)
[2023-09-19 08:37] LABS: SODIUM SERUM 156 mmol/L (136-145)
[2023-09-19] MEDS ORDERED: DEXTROSE 5% 1,000 ML IV SCH (10:30)
[2023-09-20] VITALS (18 sets, daily range): BP systolic 63–136; BP diastolic 43–83; PULSE 61–97; RESP 18–22; TEMP 86–97.9; O2SAT 80–100
[2023-09-20 06:56] LABS: BASOPHILS % (AUTO) 0.5 % (0.0-2.0); EOSINOPHILS # (AUTO) 0.3 K/uL (0-0.4); EOSINOPHILS % (AUTO) 5.5 % (0.0-4.0); HEMATOCRIT 26.1 % (36-52); HEMOGLOBIN 8.2 g/dL (12.0-18.0); LYMPHOCYTES # (AUTO) 1.1 K/uL (2.0-11.5); LYMPHOCYTES % (AUTO) 19.8 % (20.5-51.1); MEAN CORPUSCULAR HEMOGLOBIN 26 pg (27-31); MEAN CORPUSCULAR HGB CONC 31 g/dL (33-37); MEAN CORPUSCULAR VOLUME 82.3 fL (80-94); MONOCYTES # (AUTO) 0.4 K/uL (0.8-1.0); MONOCYTES % (AUTO) 6.9 % (1.7-9.3); NEUTROPHILS # (AUTO) 3.7 K/uL (1.8-7.7); NEUTROPHILS % (AUTO) 67.3 % (42.2-75.2); PLATELET COUNT (AUTO) 135 K/uL (140-450); RED BLOOD CELL COUNT(AUTO) 3.16 MIL/uL (4.20-6.10); RED CELL DISTRIBUTION WIDTH 19.7 % (11.6-13.7); WHITE BLOOD COUNT (AUTO) 5.5 K/uL (4.8-10.8)
[2023-09-20 07:26] LABS: ANION GAP 12.7 (8-16); CALCIUM 8.1 mg/dL (8.5-10.1); CARBON DIOXIDE 26.8 mmol/L (21-32); CHLORIDE 109 mmol/L (98-107); CREATININE 1.6 mg/dL (0.6-1.3); GLUCOSE 146 mg/dL (74-106); POTASSIUM 3.5 mmol/L (3.5-5.1); SODIUM SERUM 145 mmol/L (136-145); UREA NITROGEN, BLOOD 20 mg/dL (7-18)
[2023-09-20 07:38] LABS: MAGNESIUM 1.8 mg/dL (1.8-2.4); PHOSPHORUS 3.7 mg/dL (2.5-4.9)
[2023-09-20] MEDS ORDERED: METH-1866 PO (13:47)
[2023-09-20] MEDS ORDERED: PIPE1SOL IV (13:47)
[2023-09-20] MEDS ORDERED: FLUC200T PO (13:47)
[2023-09-20] MEDS ORDERED: INTUBATION KIT MC ONE (15:39)
[2023-09-20] MEDS ORDERED: ALBUTEROL SULFATE/IPRATROPIU 3 ML SOL IH PRN (18:30)
[2023-09-20] MEDS: PROPOFOL 1000 MG/100 ML PREMIX 100 ML IV PRN (19:00)
[2023-09-20 19:04] LABS: BLOOD GAS BASE EXCESS -2.1 mmol/L (-2.0-2.0); BLOOD GAS HCO3 22.3 mmol/L (22-26); BLOOD GAS PH 7.409 (7.35-7.45); BLOOD GAS PO2 63.8 mmHg (75-100)
[2023-09-20] MEDS: ALBUTEROL SULFATE/IPRATROPIU 3 ML SOL IH SCH (19:11)
[2023-09-20] MEDS: FUROSEMIDE 20 MG/2 ML VIAL IVP SCH (20:31)
[2023-09-20] MEDS: NACL 0.9% 1,000 ML IV SCH (20:53)
[2023-09-20] MEDS: PROPOFOL 1000 MG/100 ML PREMIX 100 ML IV ONE (20:54)
[2023-09-20] MEDS: DEXT 5% / NACL 0.9% 1,000 ML IV SCH (21:25)
[2023-09-20] MEDS: NOREPINEPHRINE 8 MG in DEXTROSE 5% 250 ML IV PRN (23:33)
[2023-09-20] MEDS: NOREPINEPHRINE 4 MG/4 ML VIAL IV ONE (23:33)
[2023-09-21] VITALS (31 sets, daily range): BP systolic 79–147; BP diastolic 45–81; PULSE 60–123; RESP 15–30; TEMP 97.2–100.6; O2SAT 95–100
[2023-09-21 05:54] LABS: BASOPHILS % (AUTO) 0.2 % (0.0-2.0); EOSINOPHILS # (AUTO) 0.1 K/uL (0-0.4); EOSINOPHILS % (AUTO) 1.9 % (0.0-4.0); HEMOGLOBIN 8.3 g/dL (12.0-18.0); LYMPHOCYTES # (AUTO) 1.1 K/uL (2.0-11.5); LYMPHOCYTES % (AUTO) 16.2 % (20.5-51.1); MEAN CORPUSCULAR HEMOGLOBIN 26 pg (27-31); MEAN CORPUSCULAR HGB CONC 32 g/dL (33-37); MEAN CORPUSCULAR VOLUME 81.4 fL (80-94); MONOCYTES # (AUTO) 0.4 K/uL (0.8-1.0); MONOCYTES % (AUTO) 6.5 % (1.7-9.3); NEUTROPHILS # (AUTO) 5.1 K/uL (1.8-7.7); NEUTROPHILS % (AUTO) 75.2 % (42.2-75.2); PLATELET COUNT (AUTO) 138 K/uL (140-450); RED BLOOD CELL COUNT(AUTO) 3.19 MIL/uL (4.20-6.10); RED CELL DISTRIBUTION WIDTH 19.1 % (11.6-13.7); WHITE BLOOD COUNT (AUTO) 6.7 K/uL (4.8-10.8)
[2023-09-21 06:02] LABS: MAGNESIUM 1.4 mg/dL (1.8-2.4); PHOSPHORUS 3.3 mg/dL (2.5-4.9)
[2023-09-21 06:43] LABS: ANION GAP 15.8 (8-16); CALCIUM 7.9 mg/dL (8.5-10.1); CARBON DIOXIDE 23.2 mmol/L (21-32); CHLORIDE 106 mmol/L (98-107); CREATININE 1.5 mg/dL (0.6-1.3); GLUCOSE 162 mg/dL (74-106); SODIUM SERUM 142 mmol/L (136-145); UREA NITROGEN, BLOOD 21 mg/dL (7-18)
[2023-09-21] MEDS: MAG SULF 2000 MG/WATER PREMIX 50 ML IV PRN (09:22)
[2023-09-21] MEDS: POTASSIUM CHLORIDE 20% 40 MEQ/15 ML UDC GT SCH (11:40)
[2023-09-21] MEDS: DOCUSATE 100 MG/10 ML UDC GT SCH (11:40)
[2023-09-21] MEDS: INSULIN LISPRO SLIDING SCALE 100 UNITS/ML VIAL SUBQ PRN (11:45)
[2023-09-21] MEDS: ACETAMINOPHEN 325 MG TAB PO PRN (17:06)
[2023-09-22] VITALS (33 sets, daily range): BP systolic 86–154; BP diastolic 49–82; PULSE 67–119; RESP 20–23; TEMP 96.8–97.5; O2SAT 96–100
[2023-09-22 05:40] LABS: BASOPHILS % (AUTO) 0.3 % (0.0-2.0); EOSINOPHILS # (AUTO) 0.4 K/uL (0-0.4); EOSINOPHILS % (AUTO) 3.9 % (0.0-4.0); HEMATOCRIT 22.3 % (36-52); LYMPHOCYTES # (AUTO) 2.3 K/uL (2.0-11.5); LYMPHOCYTES % (AUTO) 23.1 % (20.5-51.1); MEAN CORPUSCULAR HEMOGLOBIN 26 pg (27-31); MEAN CORPUSCULAR HGB CONC 32 g/dL (33-37); MEAN CORPUSCULAR VOLUME 81.7 fL (80-94); MONOCYTES # (AUTO) 0.6 K/uL (0.8-1.0); MONOCYTES % (AUTO) 5.5 % (1.7-9.3); NEUTROPHILS # (AUTO) 6.7 K/uL (1.8-7.7); NEUTROPHILS % (AUTO) 67.2 % (42.2-75.2); PLATELET COUNT (AUTO) 193 K/uL (140-450); RED BLOOD CELL COUNT(AUTO) 2.73 MIL/uL (4.20-6.10); RED CELL DISTRIBUTION WIDTH 19.4 % (11.6-13.7); WHITE BLOOD COUNT (AUTO) 9.9 K/uL (4.8-10.8)
[2023-09-22 05:57] LABS: ANION GAP 13.5 (8-16); CALCIUM 8.1 mg/dL (8.5-10.1); CARBON DIOXIDE 23.3 mmol/L (21-32); CHLORIDE 110 mmol/L (98-107); GLUCOSE 206 mg/dL (74-106); POTASSIUM 3.8 mmol/L (3.5-5.1); SODIUM SERUM 143 mmol/L (136-145); UREA NITROGEN, BLOOD 31 mg/dL (7-18)
[2023-09-22 06:02] LABS: MAGNESIUM 1.9 mg/dL (1.8-2.4); PHOSPHORUS 3.1 mg/dL (2.5-4.9)
[2023-09-22] MEDS: DEXMEDETOMIDINE HCL 400 MCG in NACL 0.9% 96 ML IV PRN (09:05)
[2023-09-23] VITALS (32 sets, daily range): BP systolic 91–153; BP diastolic 54–83; PULSE 78–104; RESP 14–26; TEMP 96.9–98.8; O2SAT 96–100
[2023-09-23 05:37] LABS: ANION GAP 14.4 (8-16); CARBON DIOXIDE 22.8 mmol/L (21-32); CHLORIDE 113 mmol/L (98-107); CREATININE 1.9 mg/dL (0.6-1.3); GLUCOSE 160 mg/dL (74-106); POTASSIUM 4.2 mmol/L (3.5-5.1); SODIUM SERUM 146 mmol/L (136-145); UREA NITROGEN, BLOOD 28 mg/dL (7-18)
[2023-09-23 05:41] LABS: BASOPHILS % (AUTO) 0.3 % (0.0-2.0); EOSINOPHILS # (AUTO) 0.3 K/uL (0-0.4); EOSINOPHILS % (AUTO) 5.1 % (0.0-4.0); HEMATOCRIT 20.1 % (36-52); LYMPHOCYTES # (AUTO) 1.4 K/uL (2.0-11.5); MEAN CORPUSCULAR HEMOGLOBIN 26 pg (27-31); MEAN CORPUSCULAR HGB CONC 32 g/dL (33-37); MEAN CORPUSCULAR VOLUME 80.6 fL (80-94); MONOCYTES # (AUTO) 0.3 K/uL (0.8-1.0); MONOCYTES % (AUTO) 4.6 % (1.7-9.3); NEUTROPHILS # (AUTO) 4.1 K/uL (1.8-7.7); PLATELET COUNT (AUTO) 148 K/uL (140-450); RED BLOOD CELL COUNT(AUTO) 2.49 MIL/uL (4.20-6.10); RED CELL DISTRIBUTION WIDTH 19.6 % (11.6-13.7); WHITE BLOOD COUNT (AUTO) 6.1 K/uL (4.8-10.8)
[2023-09-23 05:47] LABS: HEMOGLOBIN 6.5 g/dL (12.0-18.0)
[2023-09-23 06:16] LABS: MAGNESIUM 0.5 mg/dL (1.8-2.4)
[2023-09-23 20:11] LABS: BASOPHILS % (AUTO) 0.5 % (0.0-2.0); EOSINOPHILS # (AUTO) 0.4 K/uL (0-0.4); EOSINOPHILS % (AUTO) 6.7 % (0.0-4.0); HEMATOCRIT 23.6 % (36-52); LYMPHOCYTES # (AUTO) 1.3 K/uL (2.0-11.5); LYMPHOCYTES % (AUTO) 20.6 % (20.5-51.1); MEAN CORPUSCULAR HEMOGLOBIN 26 pg (27-31); MEAN CORPUSCULAR HGB CONC 33 g/dL (33-37); MEAN CORPUSCULAR VOLUME 79.6 fL (80-94); MONOCYTES # (AUTO) 0.4 K/uL (0.8-1.0); MONOCYTES % (AUTO) 5.8 % (1.7-9.3); NEUTROPHILS # (AUTO) 4.2 K/uL (1.8-7.7); NEUTROPHILS % (AUTO) 66.4 % (42.2-75.2); PLATELET COUNT (AUTO) 151 K/uL (140-450); RED BLOOD CELL COUNT(AUTO) 2.97 MIL/uL (4.20-6.10); RED CELL DISTRIBUTION WIDTH 18.9 % (11.6-13.7); WHITE BLOOD COUNT (AUTO) 6.3 K/uL (4.8-10.8)
[2023-09-23 20:22] LABS: HEMOGLOBIN 7.7 g/dL (12.0-18.0)
[2023-09-24] VITALS (32 sets, daily range): BP systolic 91–155; BP diastolic 53–83; PULSE 20–120; RESP 16–22; TEMP 97.3–98.6; O2SAT 94–100
[2023-09-24 04:25] LABS: BASOPHILS % (AUTO) 0.4 % (0.0-2.0); EOSINOPHILS # (AUTO) 0.4 K/uL (0-0.4); EOSINOPHILS % (AUTO) 7.7 % (0.0-4.0); HEMATOCRIT 21.3 % (36-52); LYMPHOCYTES # (AUTO) 1.2 K/uL (2.0-11.5); LYMPHOCYTES % (AUTO) 22.4 % (20.5-51.1); MEAN CORPUSCULAR HEMOGLOBIN 26 pg (27-31); MEAN CORPUSCULAR HGB CONC 33 g/dL (33-37); MEAN CORPUSCULAR VOLUME 79.8 fL (80-94); MONOCYTES # (AUTO) 0.3 K/uL (0.8-1.0); MONOCYTES % (AUTO) 4.6 % (1.7-9.3); NEUTROPHILS # (AUTO) 3.6 K/uL (1.8-7.7); NEUTROPHILS % (AUTO) 64.9 % (42.2-75.2); PLATELET COUNT (AUTO) 135 K/uL (140-450); RED BLOOD CELL COUNT(AUTO) 2.67 MIL/uL (4.20-6.10); RED CELL DISTRIBUTION WIDTH 19.2 % (11.6-13.7); WHITE BLOOD COUNT (AUTO) 5.6 K/uL (4.8-10.8)
[2023-09-24 04:42] LABS: ANION GAP 14.3 (8-16); CALCIUM 8.1 mg/dL (8.5-10.1); CARBON DIOXIDE 23.5 mmol/L (21-32); CHLORIDE 115 mmol/L (98-107); CREATININE 1.7 mg/dL (0.6-1.3); GLUCOSE 146 mg/dL (74-106); POTASSIUM 3.8 mmol/L (3.5-5.1); SODIUM SERUM 149 mmol/L (136-145); UREA NITROGEN, BLOOD 26 mg/dL (7-18)
[2023-09-24 04:45] LABS: HEMOGLOBIN 6.9 g/dL (12.0-18.0); MAGNESIUM 2.3 mg/dL (1.8-2.4); PHOSPHORUS 4.5 mg/dL (2.5-4.9)
[2023-09-24] MEDS: ALBUTEROL SULFATE/IPRATROPIU 3 ML SOL IH SCH (12:23)
[2023-09-24 19:24] LABS: HEMOGLOBIN 8.8 g/dL (12.0-18.0)
[2023-09-25] VITALS (27 sets, daily range): BP systolic 98–170; BP diastolic 60–111; PULSE 69–106; RESP 18–25; TEMP 97.2–97.7; O2SAT 95–100
[2023-09-25 05:28] LABS: BASOPHILS % (AUTO) 0.3 % (0.0-2.0); EOSINOPHILS # (AUTO) 0.4 K/uL (0-0.4); EOSINOPHILS % (AUTO) 5.3 % (0.0-4.0); HEMOGLOBIN 8.6 g/dL (12.0-18.0); LYMPHOCYTES # (AUTO) 1.5 K/uL (2.0-11.5); MEAN CORPUSCULAR HEMOGLOBIN 27 pg (27-31); MEAN CORPUSCULAR HGB CONC 33 g/dL (33-37); MEAN CORPUSCULAR VOLUME 80.6 fL (80-94); MONOCYTES # (AUTO) 0.4 K/uL (0.8-1.0); MONOCYTES % (AUTO) 5.6 % (1.7-9.3); NEUTROPHILS # (AUTO) 4.6 K/uL (1.8-7.7); NEUTROPHILS % (AUTO) 66.8 % (42.2-75.2); PLATELET COUNT (AUTO) 126 K/uL (140-450); RED BLOOD CELL COUNT(AUTO) 3.23 MIL/uL (4.20-6.10); RED CELL DISTRIBUTION WIDTH 18.7 % (11.6-13.7); WHITE BLOOD COUNT (AUTO) 6.9 K/uL (4.8-10.8)
[2023-09-25 05:50] LABS: MAGNESIUM 1.9 mg/dL (1.8-2.4); PHOSPHORUS 4.4 mg/dL (2.5-4.9)
[2023-09-25 06:22] LABS: ANION GAP 13.9 (8-16); CARBON DIOXIDE 24.8 mmol/L (21-32); CHLORIDE 115 mmol/L (98-107); CREATININE 1.7 mg/dL (0.6-1.3); GLUCOSE 148 mg/dL (74-106); POTASSIUM 3.7 mmol/L (3.5-5.1); SODIUM SERUM 150 mmol/L (136-145); UREA NITROGEN, BLOOD 27 mg/dL (7-18)
[2023-09-25] MEDS: NACL 0.45% 1,000 ML IV SCH (10:19)
[2023-09-25] MEDS: BLOOD GLUCOSE MONITORING 1 DEV DEV FS SCH (11:24)
[2023-09-25] MEDS: lisinopriL 20 MG TAB PO SCH (16:59)
[2023-09-26] VITALS (22 sets, daily range): BP systolic 101–153; BP diastolic 57–90; PULSE 79–100; RESP 14–24; TEMP 96.6–98.4; O2SAT 94–100
[2023-09-26 06:48] LABS: MAGNESIUM 1.8 mg/dL (1.8-2.4); PHOSPHORUS 4.2 mg/dL (2.5-4.9)
[2023-09-26 06:54] LABS: ANION GAP 13.6 (8-16); CARBON DIOXIDE 25.9 mmol/L (21-32); CHLORIDE 112 mmol/L (98-107); CREATININE 1.6 mg/dL (0.6-1.3); GLUCOSE 141 mg/dL (74-106); POTASSIUM 3.5 mmol/L (3.5-5.1); SODIUM SERUM 148 mmol/L (136-145); UREA NITROGEN, BLOOD 37 mg/dL (7-18)
[2023-09-26 07:47] LABS: WHITE BLOOD COUNT (AUTO) 7.4 K/uL (4.8-10.8)
[2023-09-26 07:48] LABS: HEMATOCRIT 26.2 % (36-52); HEMOGLOBIN 8.3 g/dL (12.0-18.0); LYMPHOCYTES % (AUTO) 20.3 % (20.5-51.1); MEAN CORPUSCULAR HEMOGLOBIN 26 pg (27-31); MEAN CORPUSCULAR HGB CONC 32 g/dL (33-37); NEUTROPHILS % (AUTO) 69.6 % (42.2-75.2); PLATELET COUNT (AUTO) 125 K/uL (140-450); RED CELL DISTRIBUTION WIDTH 18.8 % (11.6-13.7)
[2023-09-26 07:49] LABS: BASOPHILS % (AUTO) 0.4 % (0.0-2.0); EOSINOPHILS # (AUTO) 0.4 K/uL (0-0.4); EOSINOPHILS % (AUTO) 5.6 % (0.0-4.0); LYMPHOCYTES # (AUTO) 1.5 K/uL (2.0-11.5); MONOCYTES # (AUTO) 0.3 K/uL (0.8-1.0); MONOCYTES % (AUTO) 4.1 % (1.7-9.3); NEUTROPHILS # (AUTO) 5.2 K/uL (1.8-7.7)
[2023-09-26] MEDS: lisinopriL 20 MG TAB PO SCH (09:41)
[2023-09-26] MEDS ORDERED: VANCOMYCIN PER PHARMACY MC PRN (13:25)
[2023-09-26] MEDS: VANCOMYCIN 1,000 MG in DEXTROSE 5% 250 ML IV SCH (16:48)
[2023-09-27] VITALS (21 sets, daily range): BP systolic 114–157; BP diastolic 70–94; PULSE 81–97; RESP 14–28; TEMP 96–97.4; O2SAT 98–100
[2023-09-27] MEDS: LEVOFLOXACIN 500 MG/D5W PREMIX 100 ML IV SCH (01:06)
[2023-09-27] MEDS ORDERED: CEFEPIME 1,000 MG VIAL ONE (04:43)
[2023-09-27] MEDS: CEFEPIME 1,000 MG in DEXTROSE 5% 50 ML IV SCH (04:53)
[2023-09-27 05:57] LABS: BASOPHILS % (AUTO) 0.4 % (0.0-2.0); EOSINOPHILS # (AUTO) 0.4 K/uL (0-0.4); EOSINOPHILS % (AUTO) 4.8 % (0.0-4.0); HEMATOCRIT 25.1 % (36-52); HEMOGLOBIN 8.1 g/dL (12.0-18.0); LYMPHOCYTES # (AUTO) 1.6 K/uL (2.0-11.5); LYMPHOCYTES % (AUTO) 18.4 % (20.5-51.1); MEAN CORPUSCULAR HEMOGLOBIN 26 pg (27-31); MEAN CORPUSCULAR HGB CONC 32 g/dL (33-37); MEAN CORPUSCULAR VOLUME 81.7 fL (80-94); MONOCYTES # (AUTO) 0.4 K/uL (0.8-1.0); MONOCYTES % (AUTO) 4.6 % (1.7-9.3); NEUTROPHILS # (AUTO) 6.3 K/uL (1.8-7.7); NEUTROPHILS % (AUTO) 71.8 % (42.2-75.2); PLATELET COUNT (AUTO) 129 K/uL (140-450); RED BLOOD CELL COUNT(AUTO) 3.07 MIL/uL (4.20-6.10); RED CELL DISTRIBUTION WIDTH 18.9 % (11.6-13.7); WHITE BLOOD COUNT (AUTO) 8.8 K/uL (4.8-10.8)
[2023-09-27 06:19] LABS: ANION GAP 12.5 (8-16); CARBON DIOXIDE 26.7 mmol/L (21-32); CHLORIDE 109 mmol/L (98-107); CREATININE 1.6 mg/dL (0.6-1.3); GLUCOSE 131 mg/dL (74-106); POTASSIUM 3.2 mmol/L (3.5-5.1); SODIUM SERUM 145 mmol/L (136-145); UREA NITROGEN, BLOOD 32 mg/dL (7-18)
[2023-09-27] MEDS: KCL 20 MEQ IN 100 mL PREMIX 200 ML IV PRN (20:39)
[2023-09-28] VITALS (21 sets, daily range): BP systolic 109–142; BP diastolic 64–85; PULSE 64–100; RESP 16–20; TEMP 97.2–97.5; O2SAT 94–100
[2023-09-28 05:47] LABS: BASOPHILS % (AUTO) 0.4 % (0.0-2.0); EOSINOPHILS # (AUTO) 0.3 K/uL (0-0.4); HEMATOCRIT 25.3 % (36-52); HEMOGLOBIN 8.1 g/dL (12.0-18.0); LYMPHOCYTES # (AUTO) 1.3 K/uL (2.0-11.5); LYMPHOCYTES % (AUTO) 15.5 % (20.5-51.1); MEAN CORPUSCULAR HEMOGLOBIN 26 pg (27-31); MEAN CORPUSCULAR HGB CONC 32 g/dL (33-37); MEAN CORPUSCULAR VOLUME 82.7 fL (80-94); MONOCYTES # (AUTO) 0.5 K/uL (0.8-1.0); MONOCYTES % (AUTO) 5.6 % (1.7-9.3); NEUTROPHILS # (AUTO) 6.4 K/uL (1.8-7.7); NEUTROPHILS % (AUTO) 74.5 % (42.2-75.2); PLATELET COUNT (AUTO) 132 K/uL (140-450); RED BLOOD CELL COUNT(AUTO) 3.06 MIL/uL (4.20-6.10); RED CELL DISTRIBUTION WIDTH 18.6 % (11.6-13.7); WHITE BLOOD COUNT (AUTO) 8.6 K/uL (4.8-10.8)
[2023-09-28 06:09] LABS: ANION GAP 9.6 (8-16); CARBON DIOXIDE 28.1 mmol/L (21-32); CHLORIDE 109 mmol/L (98-107); CREATININE 1.5 mg/dL (0.6-1.3); GLUCOSE 146 mg/dL (74-106); POTASSIUM 3.7 mmol/L (3.5-5.1); SODIUM SERUM 143 mmol/L (136-145); UREA NITROGEN, BLOOD 26 mg/dL (7-18)
[2023-09-29] VITALS (32 sets, daily range): BP systolic 87–152; BP diastolic 57–112; PULSE 61–104; RESP 16–24; TEMP 97.1–98.4; O2SAT 94–100
[2023-09-29 05:35] LABS: BASOPHILS # (AUTO) 0.1 K/uL (0.00-0.22); BASOPHILS % (AUTO) 0.6 % (0.0-2.0); EOSINOPHILS # (AUTO) 0.4 K/uL (0-0.4); EOSINOPHILS % (AUTO) 3.2 % (0.0-4.0); HEMATOCRIT 26.5 % (36-52); HEMOGLOBIN 8.5 g/dL (12.0-18.0); LYMPHOCYTES # (AUTO) 1.8 K/uL (2.0-11.5); LYMPHOCYTES % (AUTO) 16.4 % (20.5-51.1); MEAN CORPUSCULAR HEMOGLOBIN 26 pg (27-31); MEAN CORPUSCULAR HGB CONC 32 g/dL (33-37); MEAN CORPUSCULAR VOLUME 81.6 fL (80-94); MONOCYTES # (AUTO) 0.8 K/uL (0.8-1.0); NEUTROPHILS # (AUTO) 8.2 K/uL (1.8-7.7); NEUTROPHILS % (AUTO) 72.8 % (42.2-75.2); PLATELET COUNT (AUTO) 205 K/uL (140-450); RED BLOOD CELL COUNT(AUTO) 3.24 MIL/uL (4.20-6.10); RED CELL DISTRIBUTION WIDTH 19.1 % (11.6-13.7); WHITE BLOOD COUNT (AUTO) 11.2 K/uL (4.8-10.8)
[2023-09-29 06:19] LABS: ANION GAP 11.9 (8-16); CALCIUM 8.1 mg/dL (8.5-10.1); CARBON DIOXIDE 26.8 mmol/L (21-32); CHLORIDE 108 mmol/L (98-107); CREATININE 1.6 mg/dL (0.6-1.3); GLUCOSE 167 mg/dL (74-106); POTASSIUM 3.7 mmol/L (3.5-5.1); SODIUM SERUM 143 mmol/L (136-145); UREA NITROGEN, BLOOD 30 mg/dL (7-18)
[2023-09-30] VITALS (36 sets, daily range): BP systolic 98–141; BP diastolic 56–87; PULSE 67–102; RESP 16–21; TEMP 97.1–99; O2SAT 95–100
[2023-09-30 06:14] LABS: BASOPHILS % (AUTO) 0.3 % (0.0-2.0); EOSINOPHILS # (AUTO) 0.2 K/uL (0-0.4); EOSINOPHILS % (AUTO) 1.8 % (0.0-4.0); HEMATOCRIT 23.9 % (36-52); HEMOGLOBIN 7.9 g/dL (12.0-18.0); LYMPHOCYTES # (AUTO) 1.6 K/uL (2.0-11.5); LYMPHOCYTES % (AUTO) 19.4 % (20.5-51.1); MEAN CORPUSCULAR HEMOGLOBIN 27 pg (27-31); MEAN CORPUSCULAR HGB CONC 33 g/dL (33-37); MEAN CORPUSCULAR VOLUME 80.6 fL (80-94); MONOCYTES # (AUTO) 0.6 K/uL (0.8-1.0); MONOCYTES % (AUTO) 7.1 % (1.7-9.3); NEUTROPHILS % (AUTO) 71.4 % (42.2-75.2); PLATELET COUNT (AUTO) 207 K/uL (140-450); RED BLOOD CELL COUNT(AUTO) 2.97 MIL/uL (4.20-6.10); RED CELL DISTRIBUTION WIDTH 19.1 % (11.6-13.7); WHITE BLOOD COUNT (AUTO) 8.5 K/uL (4.8-10.8)
[2023-09-30 06:18] LABS: ANION GAP 8.2 (8-16); CALCIUM 8.1 mg/dL (8.5-10.1); CARBON DIOXIDE 29.4 mmol/L (21-32); CHLORIDE 107 mmol/L (98-107); CREATININE 1.7 mg/dL (0.6-1.3); GLUCOSE 148 mg/dL (74-106); POTASSIUM 3.6 mmol/L (3.5-5.1); SODIUM SERUM 141 mmol/L (136-145); UREA NITROGEN, BLOOD 34 mg/dL (7-18)
[2023-10-01] VITALS (32 sets, daily range): BP systolic 96–134; BP diastolic 59–85; PULSE 58–107; RESP 16–20; TEMP 96–99.2; O2SAT 97–100
[2023-10-01 06:37] LABS: ANION GAP 8.8 (8-16); CARBON DIOXIDE 28.9 mmol/L (21-32); CHLORIDE 105 mmol/L (98-107); POTASSIUM 3.7 mmol/L (3.5-5.1); SODIUM SERUM 139 mmol/L (136-145)
[2023-10-01 06:38] LABS: CALCIUM 8.4 mg/dL (8.5-10.1)
[2023-10-01 07:42] LABS: CREATININE 1.7 mg/dL (0.6-1.3); GLUCOSE 132 mg/dL (74-106); UREA NITROGEN, BLOOD 34 mg/dL (7-18)
[2023-10-01 07:58] LABS: HEMATOCRIT 23.2 % (36-52); HEMOGLOBIN 7.6 g/dL (12.0-18.0); MEAN CORPUSCULAR HEMOGLOBIN 26 pg (27-31); MEAN CORPUSCULAR HGB CONC 33 g/dL (33-37); MEAN CORPUSCULAR VOLUME 80.4 fL (80-94); PLATELET COUNT (AUTO) 246 K/uL (140-450); RED BLOOD CELL COUNT(AUTO) 2.89 MIL/uL (4.20-6.10); RED CELL DISTRIBUTION WIDTH 19.6 % (11.6-13.7)
[2023-10-01 07:59] LABS: BASOPHILS % (AUTO) 0.5 % (0.0-2.0); EOSINOPHILS # (AUTO) 0.2 K/uL (0-0.4); EOSINOPHILS % (AUTO) 1.8 % (0.0-4.0); LYMPHOCYTES # (AUTO) 1.5 K/uL (2.0-11.5); LYMPHOCYTES % (AUTO) 16.2 % (20.5-51.1); MONOCYTES # (AUTO) 0.6 K/uL (0.8-1.0); MONOCYTES % (AUTO) 6.6 % (1.7-9.3); NEUTROPHILS # (AUTO) 6.7 K/uL (1.8-7.7); NEUTROPHILS % (AUTO) 74.9 % (42.2-75.2)
[2023-10-01] MEDS: LEVOFLOXACIN 500 MG/D5W PREMIX 100 ML IV SCH (15:18)
[2023-10-02] VITALS (25 sets, daily range): BP systolic 98–135; BP diastolic 60–93; PULSE 72–108; RESP 14–25; TEMP 96.9–98; O2SAT 97–100
[2023-10-02 05:29] LABS: BASOPHILS % (AUTO) 0.3 % (0.0-2.0); EOSINOPHILS # (AUTO) 0.1 K/uL (0-0.4); EOSINOPHILS % (AUTO) 1.5 % (0.0-4.0); HEMATOCRIT 23.5 % (36-52); HEMOGLOBIN 7.7 g/dL (12.0-18.0); LYMPHOCYTES # (AUTO) 1.4 K/uL (2.0-11.5); LYMPHOCYTES % (AUTO) 15.6 % (20.5-51.1); MEAN CORPUSCULAR HEMOGLOBIN 26 pg (27-31); MEAN CORPUSCULAR HGB CONC 33 g/dL (33-37); MEAN CORPUSCULAR VOLUME 81.1 fL (80-94); MONOCYTES # (AUTO) 0.5 K/uL (0.8-1.0); MONOCYTES % (AUTO) 6.1 % (1.7-9.3); NEUTROPHILS # (AUTO) 6.8 K/uL (1.8-7.7); NEUTROPHILS % (AUTO) 76.5 % (42.2-75.2); PLATELET COUNT (AUTO) 266 K/uL (140-450); WHITE BLOOD COUNT (AUTO) 8.8 K/uL (4.8-10.8)
[2023-10-02 05:52] LABS: ANION GAP 9.1 (8-16); CALCIUM 8.3 mg/dL (8.5-10.1); CARBON DIOXIDE 28.5 mmol/L (21-32); CHLORIDE 104 mmol/L (98-107); CREATININE 1.6 mg/dL (0.6-1.3); GLUCOSE 122 mg/dL (74-106); POTASSIUM 3.6 mmol/L (3.5-5.1); SODIUM SERUM 138 mmol/L (136-145); UREA NITROGEN, BLOOD 31 mg/dL (7-18)
[2023-10-02] MEDS: lisinopriL 20 MG TAB PO SCH (09:13)
[2023-10-02 11:57] LABS: BLOOD GAS BASE EXCESS 2.7 mmol/L (-2.0-2.0); BLOOD GAS HCO3 26.6 mmol/L (22-26); BLOOD GAS PCO2 38.2 mmHg (35-45); BLOOD GAS PH 7.461 (7.35-7.45); BLOOD GAS PO2 84.3 mmHg (75-100)
[2023-10-02 11:58] LABS: BLOOD GAS O2 SAT% 96.2 % (92.0-98.5)
[2023-10-03] VITALS (19 sets, daily range): BP systolic 95–135; BP diastolic 55–78; PULSE 82–102; RESP 14–20; TEMP 96.3–98.3; O2SAT 97–100
[2023-10-03 05:46] LABS: BASOPHILS % (AUTO) 0.2 % (0.0-2.0); EOSINOPHILS # (AUTO) 0.1 K/uL (0-0.4); EOSINOPHILS % (AUTO) 1.4 % (0.0-4.0); HEMOGLOBIN 7.9 g/dL (12.0-18.0); LYMPHOCYTES # (AUTO) 1.7 K/uL (2.0-11.5); LYMPHOCYTES % (AUTO) 18.5 % (20.5-51.1); MEAN CORPUSCULAR HEMOGLOBIN 27 pg (27-31); MEAN CORPUSCULAR HGB CONC 33 g/dL (33-37); MEAN CORPUSCULAR VOLUME 80.8 fL (80-94); MONOCYTES # (AUTO) 0.4 K/uL (0.8-1.0); MONOCYTES % (AUTO) 4.6 % (1.7-9.3); NEUTROPHILS # (AUTO) 6.9 K/uL (1.8-7.7); NEUTROPHILS % (AUTO) 75.3 % (42.2-75.2); PLATELET COUNT (AUTO) 293 K/uL (140-450); RED BLOOD CELL COUNT(AUTO) 2.97 MIL/uL (4.20-6.10); RED CELL DISTRIBUTION WIDTH 19.3 % (11.6-13.7); WHITE BLOOD COUNT (AUTO) 9.2 K/uL (4.8-10.8)
[2023-10-03 05:56] LABS: ANION GAP 8.6 (8-16); CALCIUM 8.4 mg/dL (8.5-10.1); CARBON DIOXIDE 30.1 mmol/L (21-32); CHLORIDE 104 mmol/L (98-107); CREATININE 1.5 mg/dL (0.6-1.3); GLUCOSE 100 mg/dL (74-106); POTASSIUM 3.7 mmol/L (3.5-5.1); SODIUM SERUM 139 mmol/L (136-145); UREA NITROGEN, BLOOD 27 mg/dL (7-18)
[2023-10-03 05:58] LABS: MAGNESIUM 1.8 mg/dL (1.8-2.4); PHOSPHORUS 4.2 mg/dL (2.5-4.9)
[2023-10-03] MEDS: THERAHONEY GEL 42.5 GM TP PRN (06:48)
[2023-10-03] MEDS: HYDRAGUARD CREAM TP PRN (06:48)
[2023-10-03] MEDS: FOAM DRESSING TP PRN (06:48)
[2023-10-04] VITALS (21 sets, daily range): BP systolic 90–148; BP diastolic 52–78; PULSE 66–122; RESP 14–28; TEMP 97.3–98.9; O2SAT 96–100
[2023-10-04 05:28] LABS: BASOPHILS % (AUTO) 0.2 % (0.0-2.0); EOSINOPHILS # (AUTO) 0.1 K/uL (0-0.4); EOSINOPHILS % (AUTO) 1.6 % (0.0-4.0); HEMATOCRIT 23.1 % (36-52); HEMOGLOBIN 7.6 g/dL (12.0-18.0); LYMPHOCYTES # (AUTO) 1.5 K/uL (2.0-11.5); MEAN CORPUSCULAR HEMOGLOBIN 26 pg (27-31); MEAN CORPUSCULAR HGB CONC 33 g/dL (33-37); MEAN CORPUSCULAR VOLUME 80.2 fL (80-94); MONOCYTES # (AUTO) 0.6 K/uL (0.8-1.0); MONOCYTES % (AUTO) 7.4 % (1.7-9.3); NEUTROPHILS # (AUTO) 6.1 K/uL (1.8-7.7); NEUTROPHILS % (AUTO) 72.8 % (42.2-75.2); PLATELET COUNT (AUTO) 305 K/uL (140-450); RED BLOOD CELL COUNT(AUTO) 2.88 MIL/uL (4.20-6.10); RED CELL DISTRIBUTION WIDTH 19.5 % (11.6-13.7); WHITE BLOOD COUNT (AUTO) 8.4 K/uL (4.8-10.8)
[2023-10-04 06:02] LABS: MAGNESIUM 1.7 mg/dL (1.8-2.4); PHOSPHORUS 4.2 mg/dL (2.5-4.9)
[2023-10-04 06:15] LABS: ANION GAP 8.8 (8-16); CALCIUM 8.4 mg/dL (8.5-10.1); CARBON DIOXIDE 29.1 mmol/L (21-32); CHLORIDE 103 mmol/L (98-107); CREATININE 1.5 mg/dL (0.6-1.3); GLUCOSE 128 mg/dL (74-106); POTASSIUM 3.9 mmol/L (3.5-5.1); SODIUM SERUM 137 mmol/L (136-145); UREA NITROGEN, BLOOD 32 mg/dL (7-18)
[2023-10-04 09:46] LABS: BLOOD GAS PH 7.472 (7.35-7.45)
[2023-10-04 09:47] LABS: BLOOD GAS BASE EXCESS 0.4 mmol/L (-2.0-2.0); BLOOD GAS HCO3 23.8 mmol/L (22-26); BLOOD GAS O2 SAT% 96.7 % (92.0-98.5); BLOOD GAS PCO2 33.3 mmHg (35-45); BLOOD GAS PO2 87.9 mmHg (75-100)
[2023-10-04] MEDS ORDERED: MORPHINE SULFATE 50 MG in NACL 0.9% 45 ML IV PRN (20:00)
[2023-10-05] VITALS (14 sets, daily range): BP systolic 103–150; BP diastolic 61–74; PULSE 87–100; RESP 17–23; TEMP 96.5–98; O2SAT 95–100
[2023-10-06] VITALS (8 sets, daily range): BP systolic 96–122; BP diastolic 57–75; PULSE 96–101; RESP 17–21; TEMP 96.5–98; O2SAT 98–99
== END 2023-10-06 14:12 | disposition hospice, home (50) | DRG 870 ==
LOC: MED 15:14 → MTU 18:43 → MIC 09-20 16:00 → MMU 10-06 12:03
PROC: 0DH68UZ Insertion of Feeding Device into Stomach, Via Natural or Artificial Opening Endoscopic (ICD-10-PCS; 2023-09-17)
PROC: 5A1955Z Respiratory Ventilation, Greater than 96 Consecutive Hours (ICD-10-PCS; principal; 2023-09-20)
PROC: 0BH17EZ Insertion of Endotracheal Airway into Trachea, Via Natural or Artificial Opening (ICD-10-PCS; 2023-09-20)
PROC: 02HV33Z Insertion of Infusion Device into Superior Vena Cava, Percutaneous Approach (ICD-10-PCS; 2023-09-22)
PROC: 30233N1 Transfusion of Nonautologous Red Blood Cells into Peripheral Vein, Percutaneous Approach (ICD-10-PCS; 2023-09-23)
DX: A41.9 Sepsis, unspecified organism (principal); L89.153 Pressure ulcer of sacral region, stage 3; J69.0 Pneumonitis due to inhalation of food and vomit; E43 Unspecified severe protein-calorie malnutrition; N17.0 Acute kidney failure with tubular necrosis; R65.21 Severe sepsis with septic shock; G93.41 Metabolic encephalopathy; J96.01 Acute respiratory failure with hypoxia; J18.9 Pneumonia, unspecified organism; E87.0 Hyperosmolality and hypernatremia; J44.0 Chronic obstructive pulmonary disease with (acute) lower respiratory infection; G82.20 Paraplegia, unspecified; D63.8 Anemia in other chronic diseases classified elsewhere; E11.22 Type 2 diabetes mellitus with diabetic chronic kidney disease; E78.5 Hyperlipidemia, unspecified; E86.0 Dehydration; I12.9 Hypertensive chronic kidney disease with stage 1 through stage 4 chronic kidney disease, or unspecified chronic kidney disease; E86.1 Hypovolemia; K21.9 Gastro-esophageal reflux disease without esophagitis; Y95 Nosocomial condition; N18.30 Chronic kidney disease, stage 3 unspecified; Z51.5 Encounter for palliative care; Z79.899 Other long term (current) drug therapy; Z68.23 Body mass index [BMI] 23.0-23.9, adult; R13.10 Dysphagia, unspecified
CPT/HCPCS: 31500; 36415; 36600; 70450; 71045; 71275; 80048; 80076; 80305; 81001; 82140; 82150; 82803; 82948; 83036; 83605; 83690; 83735; 83880; 84100; 84439; 84443; 84484; 85018; 85025; 85610; 85730; 86886; 86900; 86901; 86920; 87040; 87070; 87081; 87086; 87205; 89220; 93005; 94002; 94003; 94640; 94660; 96365; 99291; A4649; C9113; J0692; J1200; J1644; J1815; J1940; J1956; J2250; J2270; J2543; J2704; J3010; J3370; J3475; J3480; J3490; J7030; J7060; P9016; Q0092; Q9967